=== PATIENT | male | born 1985 | race African-American/Black ===

== ENCOUNTER 2023-07-25 09:56 | Emergency (ER) | payer MEDICARE, MEDICAID ==
[~2023-07-25] VITALS: Ht 175.3 cm; Wt 104.5 kg
[2023-07-25 10:02] VITALS: TEMP 98.2
[2023-07-25 10:52] LABS: APPEARANCE,URINE CLEAR (CLEAR); BILIRUBIN,URINE NEGATIVE (NEGATIVE); COLOR,URINE LIGHT YELLOW (YELLOW); GLUCOSE, URINE (UA) NEGATIVE (NEGATIVE); KETONES,URINE NEGATIVE (NEGATIVE); LEUKOCYTE ESTERASE ,URINE SMALL (NEGATIVE); NITRATE,URINE NEGATIVE (NEGATIVE); OCCULT BLOOD,URINE NEGATIVE (NEGATIVE); PROTEIN,URINE NEGATIVE (NEGATIVE); SPECIFIC GRAVITIY, URINE 1.018 (1.003-1.030); UROBILINOGEN,URINE <=1.0 mg/dL (<=1.0)
[2023-07-25 11:07] LABS: BACTERIA,URINE None Seen /HPF (None Seen); RBC,URINE None Seen /HPF (0-2); SQUAMOUS EPITHELIAL CELL,UR Few /LPF (None Seen)
[2023-07-25 12:35] VITALS: BP 127/66; PULSE 83; RESP 14
[2023-07-25] MEDS ORDERED: LIDOCAINE/PF 1% 2 ML VIAL IM ONE ×2 (12:45)
[2023-07-25] MEDS ORDERED: CefTRIAXone SODIUM 1 GM/VIAL IM ONE (12:45)
[2023-07-25] MEDS ORDERED: AZITHROMYCIN 500 MG TABLET PO ONE (12:45)
== END 2023-07-25 14:34 | disposition home or self-care (01) ==
LOC: EMS 10:05
DX: N34.2 Other urethritis (principal); F12.90 Cannabis use, unspecified, uncomplicated
CPT/HCPCS: 99283; 81001; 87086; 87186; 87491; 87591; 96372; J0696; J3490; Q9967